=== PATIENT | female | born 1995 | race Two or more races ===

== ENCOUNTER 2023-03-09 11:07 | Emergency (ER) | payer SELFPAY ==
[~2023-03-09] VITALS: Ht 160 cm; Wt 141.5 kg
[2023-03-09 12:51] VITALS: BP 122/88; PULSE 100; RESP 15; TEMP 98.2; O2SAT 95
[2023-03-09] MEDS ORDERED: CEPH500T PO (14:05)
[2023-03-09 15:22] LABS: Rapid Influenza A Negative (Negative); Rapid Influenza B Negative (Negative)
[2023-03-09 15:22] LABS: Urine Bacteria FEW /hpf (None Seen); Urine Blood Negative /uL (Negative); Urine Clarity Clear (Clear); Urine Color Yellow (Yellow); Urine Protein, UAD 1+ (Negative); Urine Specific Gravity 1.029 (1.001-1.035); Urine Urobilinogen Normal (Negative); Urine WBC 3 /hpf (0 - 5)
[2023-03-09 15:28] LABS: COVID19 ANTIGEN SOFIA FIA POSITIVE (NEGATIVE)
== END 2023-03-09 15:32 | disposition home or self-care (01) ==
LOC: ER 11:07
DX: U07.1 COVID-19 (principal)
CPT/HCPCS: 36415; 81001; 81025; 87426; 87804